=== PATIENT | male | born 1985 ===

== ENCOUNTER 2017-01-07 19:43 | Emergency (ER) | payer MEDICAID, OTHER ==
[~2017-01-07] VITALS: Ht 170.2 cm; Wt 86.4 kg
[2017-01-07 19:50] VITALS: BP 138/80; PULSE 77; RESP 16; O2SAT 97
--- NOTE | 2017-01-07 21:56 | DRSVH ---
PROCEDURE: X-RAY RIGHT SHOULDER, MINIMUM TWO VIEWS ([id number]) INDICATIONS: right shoulder pain TECHNIQUE: 3 views of the shoulder were acquired. COMPARISON: None. FINDINGS: Bones: No acute fractures. A healed clavicular mid shaft fracture is demonstrated. There is sublux ation of the acromioclavicular joint width superior displacement of the distal clavicle with respect to the acromion. No suspicious bony lesions. Visualized ribs appear intact. Soft tissues: No suspicious soft tissue calcifications. IMPRESSION: 1. Subluxation of the acromioclavicular joint. 2. Chronic clavicular mid shaft fracture. Dictated by: Rigoberto Escalante M.D. on 01/07/2017 at 21:52 Approved by: Rigoberto Escalante M.D. on 01/07/2017 at 21:54
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
[2017-01-07] MEDS ORDERED: _oxyCODONE/APAP 5-325 mg Tablet PO PRN (23:20)
[2017-01-07 23:47] VITALS: BP 130/82; PULSE 72; RESP 16; O2SAT 98
== END 2017-01-07 23:57 | disposition home or self-care (01) ==
LOC: SED 19:43
DX: S43.101A Unspecified dislocation of right acromioclavicular joint, initial encounter (principal); W18.30XA Fall on same level, unspecified, initial encounter; Y93.9 Activity, unspecified; Y92.9 Unspecified place or not applicable; Y99.8 Other external cause status; F17.200 Nicotine dependence, unspecified, uncomplicated; Z88.5 Allergy status to narcotic agent; Z88.6 Allergy status to analgesic agent; Z91.030 Bee allergy status